=== PATIENT | female | born 1975 | race Caucasian/White ===

== ENCOUNTER → 2020-09-29 11:37 | Outpatient (CLI) | payer MEDICARE, MEDICAID ==
[2020-09-23 10:55] VITALS: BMI 21.3
[~2020-09-29 11:37] MED LIST: CELEXA20 MG PO; GEODON20 MG PO; TRAZODONE HCL50 MG PO
[2020-09-29 14:32] LABS: HEMATOCRIT 41.6 % (36.0-48.0); HEMOGLOBIN 14.2 g/dL (12-16); LYMPHOCYTE ABS# 3.61 10x3/uL (1.18-3.74); MCH 30.5 pg (26.0-34.0); MCHC 34.1 g/dL (31.0-37.0); MCV 89.5 fL (80.0-100.0); MEAN PLATELET VOLUME 9.4 fL (7.4-10.4); PLATELET COUNT 398 10x3/uL (130-400); RBC 4.65 10x6/uL (4.00-5.40); RDW 15.6 % (11.5-14.5); WBC 24.3 10x3/uL (4.8-10.8)
[2020-09-29 14:37] LABS: ALBUMIN 3.3 g/dL (3.4-5.0); ALKALINE PHOSPHATASE 83 U/L (30-120); ALT (SGPT) 45 U/L (10-68); BILIRUBIN - TOTAL 0.33 mg/dL (0.2-1.3); CALC OSMOLALITY 274 mosm/kg (275-300); CALCIUM 9.3 mg/dL (8.5-10.1); CARBON DIOXIDE 24.9 mmol/L (21.0-32.0); CHLORIDE - SERUM 98 mmol/L (98-107); CREATININE - SERUM 0.7 mg/dL (0.6-1.3); POTASSIUM - SERUM 3.9 mmol/L (3.5-5.1); PROTEIN - SERUM 6.8 g/dL (6.4-8.2); SODIUM 136 mmol/L (136-145); UREA NITROGEN 24 mg/dL (7-18); eGFR NON AFRICAN AMERICAN > 90 mL/min (90-120)
[2020-09-29 14:39] LABS: GLUCOSE 76 mg/dL (74-106)
[2020-09-29 15:58] LABS: LYMPHOCYTES 25 % (15-50); MONOCYTES 1 % (2-11); NEUTROPHILS 74 % (40-80); PLATELET ESTIMATE NORMAL
== END | disposition home or self-care (01) ==
LOC: D.LABREF 11:37
PROVIDERS: ATTEND Family Medicine
DX: D72.829 Elevated white blood cell count, unspecified (principal); C79.31 Secondary malignant neoplasm of brain

== ENCOUNTER → 2020-10-19 14:15 | Outpatient (CLI) | payer MEDICARE, MEDICAID ==
[2020-09-23 10:55] VITALS: BMI 21.3
== END | disposition home or self-care (01) ==
LOC: D.LDO 14:15
PROVIDERS: ATTEND Family Medicine
DX: D72.829 Elevated white blood cell count, unspecified (principal)

== ENCOUNTER → 2020-12-08 18:31 | Outpatient (CLI) | payer MEDICARE, MEDICAID ==
[2020-09-23 10:55] VITALS: BMI 21.3
[2020-12-08 19:23] LABS: ALBUMIN 3.1 g/dL (3.4-5.0); ALKALINE PHOSPHATASE 83 U/L (30-120); ALT (SGPT) 14 U/L (10-68); BILIRUBIN - TOTAL 0.26 mg/dL (0.2-1.3); CALC OSMOLALITY 274 mosm/kg (275-300); CALCIUM 8.9 mg/dL (8.5-10.1); CARBON DIOXIDE 24.3 mmol/L (21.0-32.0); CHLORIDE - SERUM 102 mmol/L (98-107); CREATININE - SERUM 0.7 mg/dL (0.6-1.3); GLUCOSE 101 mg/dL (74-106); POTASSIUM - SERUM 3.9 mmol/L (3.5-5.1); PROTEIN - SERUM 6.8 g/dL (6.4-8.2); SODIUM 138 mmol/L (136-145); UREA NITROGEN 9 mg/dL (7-18); eGFR NON AFRICAN AMERICAN > 90 mL/min (90-120)
== END | disposition home or self-care (01) ==
LOC: D.LABREF 18:31
PROVIDERS: ATTEND Family Medicine
DX: C71.9 Malignant neoplasm of brain, unspecified (principal); G20 Parkinson's disease

== ENCOUNTER → 2020-12-11 20:29 | Outpatient (CLI) | payer MEDICARE, MEDICAID ==
[2020-09-23 10:55] VITALS: BMI 21.3
[2020-12-11 20:48] LABS: BASOPHILS 0.2 % (0-2); EOSINOPHILS 0.4 % (0-7); HEMATOCRIT 40.3 % (36.0-48.0); IMMATURE GRANULOCYTES 0.4 % (0-5); LYMPHOCYTE ABS# 1.67 10x3/uL (1.18-3.74); LYMPHOCYTES 19.7 % (15-50); MCH 29.7 pg (26.0-34.0); MCHC 32.3 g/dL (31.0-37.0); MCV 92.2 fL (80.0-100.0); MEAN PLATELET VOLUME 9.4 fL (7.4-10.4); MONOCYTES 10.2 % (2-11); NEUTROPHIL ABS# 5.85 10x3/uL (1.56-6.13); NEUTROPHILS 69.1 % (40-80); PLATELET COUNT 355 10x3/uL (130-400); RBC 4.37 10x6/uL (4.00-5.40); WBC 8.5 10x3/uL (4.8-10.8)
== END | disposition home or self-care (01) ==
LOC: D.LABREF 20:29
PROVIDERS: ATTEND Family Medicine
DX: Z09 Encounter for follow-up examination after completed treatment for conditions other than malignant neoplasm (principal)